=== PATIENT | male | born 1980 | race Caucasian/White ===

== ENCOUNTER 2020-07-27 19:00 | Inpatient (IN) | payer SELFPAY ==
[2020-07-27] MEDS ORDERED: Acetaminophen 325 MG Tab PO ONE (19:51)
[2020-07-27] MEDS ORDERED: hydrALAZINE 20 MG/ML SDV IVPUSH ONE (19:54)
--- NOTE | 2020-07-27 20:01 | CR ---
PROCEDURE INFORMATION: Exam: XR Chest Exam date and time: 07/27/2020 7:38 PM Age: 40 years old Clinical indication: Cough and shortness of breath; Additional info: Cough HTN TECHNIQUE: Imaging protocol: XR of the chest Views: 1 view. COMPARISON: No relevant prior studies available. FINDINGS: Lungs: Question mild diffuse bilateral interstitial disease. There is no evidence of focal pulmonary consolidation. Pleural spaces: No pleural effusion. No pneumothorax. Heart/Mediastinum: Prominent heart size is likely accentuated by portable technique. Bones/joints: No acute bony findings are identified. IMPRESSION: 1. Question mild diffuse bilateral interstitial disease. Interstitial pneumonia suspect.Consider viral etiologies, bacterial etiologies, and atypical etiologies. 2. Pulmonary edema/fibrosis are considered less likely
[2020-07-27 20:12] LABS: ANION GAP 14.7 mEq/L (7-13); CHLORIDE,CL 101 mmol/L (98-107); SODIUM,NA 138 mmol/L (136-145)
[2020-07-27 20:40] LABS: CORONAVIRUS COVID-19 NAA NEGATIVE (NEGATIVE)
[2020-07-27] MEDS ORDERED: Benzonatate 100 MG Cap PO ONE (20:50)
[2020-07-27] MEDS ORDERED: Azithromycin 250 MG Tab PO ONE (20:50)
--- NOTE | 2020-07-27 20:54 | EDM.PDOC ---
ED HPI GENERAL MEDICAL PROBLEM - General Chief Complaint: General Stated Complaint: AMBULANCE Time Seen by Provider: 07/27/20 19:05 Source of Information: Reports: Patient, EMS History Limitations: Reports: No Limitations - History of Present Illness INITIAL COMMENTS - FREE TEXT/NARRATIVE: ED via [facility] with c/o cough x 2 weeks, headache x 2 days, Has not taken anything today for headache. No known fever, Inhaler from [employer] used a couple times few days prior. Has not bee seen in clinic. Hx High blood pressure but doesn't take medication for it. Couch productive at times, sometimes green phlegm, mostly clear. No vomiting. Worked today. Reports does not wear mask while working in [employer] Headache Pain Score (Numeric/FACES): 2 - Related Data Allergies Allergy/AdvReac Type Severity Reaction Status Date / Time No Known Allergies Allergy Verified 07/28/20 00:03 Home Meds: Home Meds EPINEPHrine [Primatene Mist] 1 puff IH Q6H PRN 07/27/20 [History] Ibuprofen 800 mg PO BID PRN 07/28/20 [History] Naproxen Sodium 880 mg PO DAILY PRN 07/28/20 [History] Past Medical History Cardiovascular History: Reports: Hypertension - Infectious Disease History Infectious Disease History: Reports: Chicken Pox Social & Family History - Tobacco Use Tobacco Use Status *Q: Never Tobacco User Second Hand Smoke Exposure: Yes - Caffeine Use Caffeine Use: Reports: None - Recreational Drug Use Recreational Drug Use: No ED ROS GENERAL - Review of Systems Review Of Systems: Comprehensive ROS is negative, except as noted in HPI. ED EXAM, GENERAL - Physical Exam Exam: See Below Exam Limited By: No Limitations General Appearance: Alert, No Apparent Distress Eye Exam: Bilateral Eye: EOMI Ears: Normal External Exam, Hearing Grossly Normal Nose: Normal Inspection Throat/Mouth: Inflammation Head: Atraumatic, Normocephalic Neck: Normal Inspection Respiratory/Chest: Decreased Breath Sounds (bilateral bases ). No: Rhonchi, Wheezing Cardiovascular: Normal Peripheral Pulses, Regular Rate, Rhythm, Other (rare bronchial cough) GI/Abdominal: Normal Bowel Sounds, Soft, Non-Tender Back Exam: Normal Inspection Extremities: Normal Inspection Neurological: Alert, Oriented Psychiatric: Flat Affect Skin Exam: Warm, Dry, Other (cheeks flushed) #1 Interpretation EKG Date: 07/27/20 Time: 19:37 Rhythm: Other (Sinus tach) Rate (Beats/Min): 104 [place]: Normal P-Wave: Present QRS: Normal ST-T: Normal QT: Normal Comparison: NA - No Prior EKG Course - Vital Signs Last Recorded V/S: Last Vital Signs Temp 97.3 F 07/27/20 23:45 Pulse 103 H 07/27/20 23:45 Resp 20 07/27/20 23:45 BP 152/96 H 07/27/20 23:45 Pulse Ox 92 L 07/27/20 23:45 - Orders/Labs/Meds Orders: Active Orders 24 hr Category Date Time Status DRUG SCREEN URINE BIORAD [URCHEM] Stat Lab 07/27/20 19:22 Stop Req UA RFX JOANNE AND CULT IF INDIC [URIN] Stat Lab 07/27/20 19:22 Stop Req Medication Orders Acetaminophen (Acetaminophen 325 Mg Tab) 650 mg PO Q4H PRN PRN Reason: Pain (Mild 1-3)/fever Azithromycin (Azithromycin 250 Mg Tab) 250 mg PO DAILY [facility] Enoxaparin Sodium (Enoxaparin 40 Mg/0.4 Ml Syringe) 40 mg SUBCUT DAILY [facility] Ceftriaxone Sodium 1 gm/ (Sodium Chloride) 50 mls @ 100 mls/hr IV BEDTIME JORDAN Last Admin: 07/28/20 00:29 Dose: 100 mls/hr Documented by: MARCOS Labs: Laboratory Tests 07/27/20 07/27/20 07/27/20 Range/Units 19:23 19:39 19:39 WBC 17.0 H (5.0-10.0) 10^3/uL RBC 5.53 (4.6-6.2) 10^6/uL Hgb 16.9 (14.0-18.0) g/dL Hct 48.1 (40.0-54.0) % MCV 87.0 (80-100) fL MCH 30.6 (27.0-34.0) pg MCHC 35.1 H (33.0-35.0) g/dL Plt Count 243 (150-450) 10^3/uL Neut % (Auto) 93.2 H (42.2-75.2) % Lymph % (Auto) 3.5 L (20.5-50.1) % [place] % (Auto) 2.9 (2-8) % Eos % (Auto) 0.2 L (1.0-3.0) % Baso % (Auto) 0.2 (0.0-1.0) % Sodium 138 (136-145) mmol/L Potassium 4.7 (3.5-5.1) mmol/L Chloride 101 (98-107) mmol/L Carbon Dioxide 27 (21-32) mmol/L Anion Gap 14.7 H (7-13) mEq/L BUN 14 (7-18) mg/dL Creatinine 1.05 (0.70-1.30) mg/dL Est Cr Clr Drug Dosing 98.49 mL/min Estimated GFR (MDRD) > 60 BUN/Creatinine Ratio 13.3 (No establ ref range) Glucose 109 H (74-99) mg/dL Calcium 9.4 (8.5-10.1) mg/dL Total Bilirubin 0.6 (0.2-1.0) mg/dL AST 20 (15-37) U/L ALT 34 (16-63) U/L Alkaline Phosphatase 98 (46-116) U/L Total Protein 8.1 (6.4-8.2) g/dL Albumin 4.0 (3.4-5.0) g/dL Globulin 4.1 Albumin/Globulin Ratio 1.0 Influenza Type A RNA Negative (NEGATIVE) Influenza Type B RNA Negative (NEGATIVE) SARS-CoV-2 RNA (FARRUKH) Negative (NEGATIVE) Meds: Medications Generic Name Dose Route Start Last Admin Trade Name Freq PRN Reason Stop Dose Admin Acetaminophen 650 mg 07/27/20 23:50 Acetaminophen 325 Mg Tab PO Q4H PRN Pain (Mild 1-3)/fever Azithromycin 250 mg 07/28/20 09:00 Azithromycin 250 Mg Tab PO DAILY JORDAN Enoxaparin Sodium 40 mg 07/28/20 09:00 Enoxaparin 40 Mg/0.4 Ml Syringe SUBCUT DAILY JORDAN Ceftriaxone Sodium 1 gm/ 50 mls @ 100 mls/hr 07/28/20 00:15 07/28/20 00:29 Sodium Chloride IV 100 mls/hr BEDTIME JORDAN Administration Discontinued Medications Generic Name Dose Route Start Last Admin Trade Name Freq PRN Reason Stop Dose Admin Acetaminophen 650 mg 07/27/20 19:51 07/27/20 20:08 Acetaminophen 325 Mg Tab PO 07/27/20 19:52 650 mg NOW ONE Administration Azithromycin 500 mg 07/27/20 20:50 07/27/20 20:55 Azithromycin 250 Mg Tab PO 07/27/20 20:51 500 mg ONETIME ONE Administration Benzonatate 200 mg 07/27/20 20:50 07/27/20 20:55 Benzonatate 100 Mg Cap PO 07/27/20 20:51 200 mg ONETIME ONE Administration Ceftriaxone Sodium 1 gm 07/27/20 23:45 Ceftriaxone 1 Gm Vial IM BEDTIME JORDAN Hydralazine HCl 10 mg 07/27/20 19:54 07/27/20 20:09 Hydralazine 20 Mg/Ml Sdv IVPUSH 07/27/20 19:55 10 mg ONETIME ONE Administration Methylprednisolone Sodium Succinate 125 mg 07/27/20 21:09 07/27/20 21:16 Methylprednisolone Sodium Succinate 125 Mg/2 Ml Sdv IVPUSH 07/27/20 21:10 125 mg ONETIME ONE Administration Departure - Departure Time of Disposition: 20:51 Disposition: Admitted As Inpatient 68 Condition: Good Clinical Impression: Hypoxia, Interstitial pneumonia of both lungs Hypertension Qualifiers: Hypertension type: essential hypertension Qualified Code(s): I10 - Essential (primary) hypertension - Discharge Information *PRESCRIPTION DRUG MONITORING PROGRAM REVIEWED*: No *COPY OF PRESCRIPTION DRUG MONITORING REPORT IN PATIENT ROBINSON: No Sepsis Event Note (ED) - Evaluation Sepsis Screening Result: No Definite Risk - Focused Exam Vital Signs: Vital Signs Temp Pulse Resp BP Pulse Ox 07/27/20 19:04 99.4 F 111 H 18 186/108 H 96 - My Orders Last 24 Hours: My Active Orders 07/27/20 19:22 DRUG SCREEN URINE BIORAD [URCHEM] Stat UA RFX JOANNE AND CULT IF INDIC [URIN] Stat - Assessment/Plan Last 24 Hours: My Active Orders 07/27/20 19:22 DRUG SCREEN URINE BIORAD [URCHEM] Stat UA RFX JOANNE AND CULT IF INDIC [URIN] Stat
[2020-07-27] MEDS ORDERED: methylPREDNISolone Sodium Succinate 125 MG/2 ML SDV IVPUSH ONE (21:09)
--- NOTE | 2020-07-27 22:37 | CT ---
PROCEDURE INFORMATION: Exam: CT Chest Without Contrast; Diagnostic Exam date and time: 07/27/2020 10:08 PM Age: 40 years old Clinical indication: Cough and shortness of breath TECHNIQUE: Imaging protocol: Diagnostic computed tomography of the chest without contrast. Radiation optimization: All CT scans at this facility use at least one of these dose optimization techniques: automated exposure control; mA and/or kV adjustment per patient size (includes targeted exams where dose is matched to clinical indication); or iterative reconstruction. COMPARISON: CR Chest 1V Frontal 07/27/2020 7:38 PM FINDINGS: Lungs: Incidental note is made of an azygos lobe configuration in the right upper lung. There is fine diffuse bilateral interstitial disease. Pattern nonspecific. There is no evidence of focal pulmonary consolidation. Pleural spaces: No pleural effusion. No pneumothorax. Heart: The heart is not enlarged. Aorta: There is no thoracic aortic aneurysm. Lymph nodes: There is no evidence of lymphadenopathy. Adrenal glands: The adrenal glands are normal. Bones/joints: No acute bony findings are identified. Soft tissues: There is no soft tissue abnormality seen. IMPRESSION: Diffuse bilateral interstitial disease. Pneumonia suspect. Consider viral etiologies, bacterial etiologies, and atypical etiologies. Inflammatory, noninfectious processes are not ruled out. Fibrosis as well as early pulmonary edema are considered less likely.
[2020-07-27] MEDS ORDERED: cefTRIAXone 1 GM Vial IM SCH (23:45)
[2020-07-27] MEDS ORDERED: Acetaminophen 325 MG Tab PO PRN (23:50)
[2020-07-28] MEDS ORDERED: cefTRIAXone 1 GM Vial IV SCH (00:15)
--- NOTE | 2020-07-28 00:28 | PCM.HP ---
H&P History of Present Illness - General Date of Service: 07/28/20 Admit Problem/Dx: Admission Diagnosis/Problem Admission Diagnosis/Problem Respiratory failure with hypoxia - History of Present Illness Initial Comments - Free Text/Narative: 40M w/ pmh obesity, HT, HL, [id number] illness in 12/2019 (never tested), seasonal allergies, occasional meth use p/w cough. Appx two months ago the pt had a week long episode of dry cough, runny nose, body aches, headache, nausea and diarrhea. He did not present for evaluation or COVID19 testing and symptoms resolved completely after appx 1 week. Some time after that, on 06/15 the pt started a new job at [employer]. 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 His work is indoors and the room is filled w/ fumes. He works 10 hours per day, 4 days per week, with only 2x 15 min and 1x 30 min breaks. He does not wear any protective mask. He doesnt know the specific chemical substances he works with. Appx 1-2 weeks ago he again began having dry cough. This has progressed to near constant cough and now w/ mild phlegm. This is associated w/ headaches, malaise and body aches. He's afebrile but feels warm. He has also developed tiny patches of eczema on bilateral dorsal feet. Denies any animal exposures, moving apartments, recent sick contacts, travel. He does not smoke or vape. Occasional marijuana use. He uses meth rarely, once or twice per year - most recently 4 days ago. In the ED he was noted hypoxic to high 80s on room air. CXR and CT chest reveal diffuse interstitial disease. There is leukocytosis 17k. Otherwise VSS and afe brile. Headache Pain Score (Numeric/FACES): 2 - Related Data Allergies/Adverse Reactions: Allergies Allergy/AdvReac Type Severity Reaction Status Date / Time No Known Allergies Allergy Verified 07/28/20 00:03 Home Medications: Home Meds EPINEPHrine [Primatene Mist] 1 puff IH Q6H PRN 07/27/20 [History] Ibuprofen 800 mg PO BID PRN 07/28/20 [History] Naproxen Sodium 880 mg PO DAILY PRN 07/28/20 [History] Past Medical History Cardiovascular History: Reports: Hypertension - Infectious Disease History Infectious Disease History: Reports: Chicken Pox Social & Family History - Tobacco Use Tobacco Use Status *Q: Never Tobacco User Second Hand Smoke Exposure: Yes - Caffeine Use Caffeine Use: Reports: None - Recreational Drug Use Recreational Drug Use: No H&P Review of Systems - Review of Systems: Review Of Systems: See Below General: Reports: Malaise, Weakness. Denies: Fever, Chills, Diaphoresis HEENT: Reports: Headaches Pulmonary: Reports: Shortness of Breath, Cough, Sputum. Denies: Wheezing, Hemoptysis Cardiovascular: Denies: Chest Pain, Palpitations, Orthopnea, Edema Gastrointestinal: Denies: Abdominal Pain, Diarrhea, Nausea, Vomiting Genitourinary: Denies: Dysuria Musculoskeletal: Denies: Neck Pain Skin: Reports: Other (new eczema dorsal feet). Denies: Jaundice Psychiatric: Denies: Confusion, Depression, Anxiety Neurological: Denies: Dizziness Hematologic/Lymphatic: Denies: Easy Bleeding Immunologic: Reports: Seasonal Allergy. Denies: Food Allergy Exam - Exam Exam: See Below - Vital Signs Vital Signs: Last Vital Signs Temp 97.3 F 07/27/20 23:45 Pulse 103 H 07/27/20 23:45 Resp 20 07/27/20 23:45 BP 152/96 H 07/27/20 23:45 Pulse Ox 92 L 07/27/20 23:45 Weight: 351 lb 8 oz - Exam Quality Assessment: Supplemental Oxygen (2L) General: Alert, Oriented, Cooperative HEENT: Conjunctiva Clear Neck: Supple Lungs: Clear to Auscultation, Normal Respiratory Effort, Other (pleuritic cough elicited on deep inspiration) Cardiovascular: Regular Rate, Regular Rhythm GI/Abdominal Exam: Normal Bowel Sounds, Soft, Non-Tender, No Distention, Other (obese) Back Exam: Normal Inspection Extremities: No Pedal Edema Skin: Other (scattered tiny eczema spots on b/l dorsal feet) Neurological: Normal Speech Neuro Extensive - Mental Status: Alert, Oriented x3, Memory Intact Neuro Extensive - Motor, Sensory, Reflexes: No: Tremor Psychiatric: Alert, Normal Affect, Normal Mood - Patient Data Lab Results Last 24 hrs: Laboratory Results - last 24 hr 07/27/20 07/27/20 07/27/20 Range/Units 19:23 19:39 19:39 WBC 17.0 H (5.0-10.0) 10^3/uL RBC 5.53 (4.6-6.2) 10^6/uL Hgb 16.9 (14.0-18.0) g/dL Hct 48.1 (40.0-54.0) % MCV 87.0 (80-100) fL MCH 30.6 (27.0-34.0) pg MCHC 35.1 H (33.0-35.0) g/dL Plt Count 243 (150-450) 10^3/uL Neut % (Auto) 93.2 H (42.2-75.2) % Lymph % (Auto) 3.5 L (20.5-50.1) % [place] % (Auto) 2.9 (2-8) % Eos % (Auto) 0.2 L (1.0-3.0) % Baso % (Auto) 0.2 (0.0-1.0) % Sodium 138 (136-145) mmol/L Potassium 4.7 (3.5-5.1) mmol/L Chloride 101 (98-107) mmol/L Carbon Dioxide 27 (21-32) mmol/L Anion Gap 14.7 H (7-13) mEq/L BUN 14 (7-18) mg/dL Creatinine 1.05 (0.70-1.30) mg/dL Est Cr Clr Drug Dosing 98.49 mL/min Estimated GFR (MDRD) > 60 BUN/Creatinine Ratio 13.3 (No establ ref range) Glucose 109 H (74-99) mg/dL Calcium 9.4 (8.5-10.1) mg/dL Total Bilirubin 0.6 (0.2-1.0) mg/dL AST 20 (15-37) U/L ALT 34 (16-63) U/L Alkaline Phosphatase 98 (46-116) U/L Total Protein 8.1 (6.4-8.2) g/dL Albumin 4.0 (3.4-5.0) g/dL Globulin 4.1 Albumin/Globulin Ratio 1.0 Influenza Type A RNA Negative (NEGATIVE) Influenza Type B RNA Negative (NEGATIVE) SARS-CoV-2 RNA (FARRUKH) Negative (NEGATIVE) Result Diagrams: 07/27/20 19:39 07/27/20 19:39 Problem List Initiated/Reviewed/Updated: No Orders Last 24hrs: Active Orders 24 hr Category Date Time Status Admission Diagnosis [ADT] Stat ADT 07/27/20 22:42 Ordered Admission Status [Patient Status] [ADT] Routine ADT 07/27/20 22:42 Active Patient Status [ADT] Routine ADT 07/27/20 23:50 Active Oxygen Therapy [RC] PRN Care 07/27/20 23:50 Active Up ad Ceci [RC] ASDIRECTED Care 07/27/20 23:50 Active VTE/DVT Education [RC] PER UNIT ROUTINE Care 07/27/20 23:50 Active Vital Signs [RC] Q4H Care 07/27/20 23:50 Active Regular Diet [DIET] Diet 07/28/20 Breakfast Active Echo Comp wo Cont [US] Routine Exams 07/28/20 00:12 Ordered PRADEEP W/RFX TO ALL IF POSITIVE [REF] Routine Lab 07/29/20 06:00 Ordered B-TYPE NATRIURETIC PEPTIDE,BNP [CHEM] Routine Lab 07/28/20 06:00 Ordered C-REACTIVE PROTEIN [REF] Routine Lab 07/28/20 06:00 Ordered CBC WITH AUTO DIFF [HEME] AM Lab 07/28/20 05:11 Ordered CULTURE BLOOD [BC] Stat Lab 07/27/20 19:39 Received CULTURE BLOOD [BC] Stat Lab 07/27/20 23:31 Received DRUG SCREEN URINE BIORAD [URCHEM] Stat Lab 07/27/20 19:22 Stop Req GLYCOSYLATED HEMOGLOBIN,HGBA1C [CHEM] Routine Lab 07/28/20 06:00 Ordered HIV-1/2 AG/AB COMBO 4TH GEN [CHEM] Routine Lab 07/28/20 06:00 Ordered [id number] AB [REF] Routine Lab 07/28/20 06:00 Ordered SEDIMENTATION RATE MANUAL [HEME] Routine Lab 07/28/20 06:00 Ordered UA RFX JOANNE AND CULT IF INDIC [URIN] Stat Lab 07/27/20 19:22 Stop Req Acetaminophen [TylenoL] Med 07/27/20 23:50 Active 650 mg PO Q4H PRN Azithromycin [Zithromax] Med 07/28/20 09:00 Active 250 mg PO DAILY Enoxaparin [Lovenox] Med 07/28/20 09:00 Active 40 mg SUBCUT DAILY cefTRIAXone [Rocephin] Med 07/28/20 00:15 Ordered 1 gm IV BEDTIME Blood Culture x2 Reflex Set [OM.PC] Stat Oth 07/27/20 22:50 Ordered Resuscitation Status Routine Resus Stat 07/27/20 23:50 Ordered Medication Orders Acetaminophen (Acetaminophen 325 Mg Tab) 650 mg PO Q4H PRN PRN Reason: Pain (Mild 1-3)/fever Azithromycin (Azithromycin 250 Mg Tab) 250 mg PO DAILY JORDAN Ceftriaxone Sodium (Ceftriaxone 1 Gm Vial) 1 gm IV BEDTIME JORDAN Enoxaparin Sodium (Enoxaparin 40 Mg/0.4 Ml Syringe) 40 mg SUBCUT DAILY JORDAN Assessment/Plan Comment:: #acute hypoxic respiratory failure - CT reviewed and there are diffuse, very fine, interstitial infiltrates in virtually all lung parenchyma w/o specific distribution pattern - in my experience this does not look like COVID19 - he is neg for COVID19 and flu in ER - ddx is broad and includes false neg COVID19, atypical bacterial pneumonia, other viral pneumonia, PCP, hypersensitivity pneumonitis, acute eosinophilic pneumonia, or other cause interstitial lung disease - will send BNP, PRADEEP, HIV, CRP, ESR, check echo - will start abx for CAP - pt is s/p solumedrol dose in the ED - will hold off further steroids tonight - plan to d/w pulmonary at [facility] tomorrow - if fails to improve I suspect the pt will need transfer for bronchoscopy #HT - hold off meds tonight #obesity - check A1c PPX - LMWH Full code
[2020-07-28] MEDS: cefTRIAXone 1 GM in Sodium Chloride 0.9% 50 ML IV SCH ×2 (00:29→21:31)
[2020-07-28 06:57] LABS: HEMOGLOBIN A1C 5.4 % (<5.7)
[2020-07-28] MEDS: Azithromycin 250 MG Tab PO SCH (08:27)
[2020-07-28] MEDS: Enoxaparin 40 MG/0.4 ML Syringe SUBCUT SCH (08:27)
[2020-07-28] MEDS ORDERED: Sodium Chloride 0.9% 1,000 ML IV ONE (08:54)
--- NOTE | 2020-07-28 15:05 | PCM.HP ---
H&P History of Present Illness - General Date of Service: 07/28/20 Admit Problem/Dx: Admission Diagnosis/Problem Admission Diagnosis/Problem Respiratory failure with hypoxia Headache Pain Score (Numeric/FACES): 0 - Related Data Allergies/Adverse Reactions: Allergies Allergy/AdvReac Type Severity Reaction Status Date / Time No Known Allergies Allergy Verified 07/28/20 00:03 Home Medications: Home Meds Azithromycin [Zithromax] 250 mg PO DAILY #1 tablet 07/30/20 [Rx] predniSONE 20 mg PO WITHBREAKFAST #4 tablet 07/30/20 [Rx] Past Medical History Cardiovascular History: Reports: Hypertension - Infectious Disease History Infectious Disease History: Reports: Chicken Pox - Past Surgical History Cardiovascular Surgical History: Reports: None Social & Family History - Family History Family Medical History: No Pertinent Family History - Tobacco Use Tobacco Use Status *Q: Never Tobacco User Second Hand Smoke Exposure: Yes - Caffeine Use Caffeine Use: Reports: Coffee, Energy Drinks, Soda Other Caffeine Use: off and on - Alcohol Use Days Per Week of Alcohol Use: 2 Number of Drinks Per Day: 10 Total Drinks Per Week: 20 - Recreational Drug Use Recreational Drug Use: Yes Drug Use in Last 12 Months: Yes Recreational Drug Type: Reports: Marijuana/Hashish, Methamphetamine Recreational Drug Use Frequency: Binges Recreational Drug Last Use: 07/25/20 Exam - Vital Signs Vital Signs: Last Vital Signs Temp 98.5 F 07/28/20 12:00 Pulse 96 07/28/20 12:00 Resp 28 H 07/28/20 12:00 BP 145/74 H 07/28/20 12:00 Pulse Ox 92 L 07/28/20 12:00 Weight: 346 lb 6.4 oz - Patient Data Lab Results Last 24 hrs: Laboratory Results - last 24 hr 07/27/20 07/27/20 07/27/20 Range/Units 19:23 19:39 19:39 WBC 17.0 H (5.0-10.0) 10^3/uL RBC 5.53 (4.6-6.2) 10^6/uL Hgb 16.9 (14.0-18.0) g/dL Hct 48.1 (40.0-54.0) % MCV 87.0 (80-100) fL MCH 30.6 (27.0-34.0) pg MCHC 35.1 H (33.0-35.0) g/dL Plt Count 243 (150-450) 10^3/uL Neut % (Auto) 93.2 H (42.2-75.2) % Lymph % (Auto) 3.5 L (20.5-50.1) % [place] % (Auto) 2.9 (2-8) % Eos % (Auto) 0.2 L (1.0-3.0) % Baso % (Auto) 0.2 (0.0-1.0) % ESR (0-15) mm/hr Sodium 138 (136-145) mmol/L Potassium 4.7 (3.5-5.1) mmol/L Chloride 101 (98-107) mmol/L Carbon Dioxide 27 (21-32) mmol/L Anion Gap 14.7 H (7-13) mEq/L BUN 14 (7-18) mg/dL Creatinine 1.05 (0.70-1.30) mg/dL Est Cr Clr Drug Dosing 98.49 mL/min Estimated GFR (MDRD) > 60 BUN/Creatinine Ratio 13.3 (No establ ref range) Glucose 109 H (74-99) mg/dL Hemoglobin A1c (<5.7) % Lactic Acid (0.4-2.0) mmol/L Calcium 9.4 (8.5-10.1) mg/dL Total Bilirubin 0.6 (0.2-1.0) mg/dL AST 20 (15-37) U/L ALT 34 (16-63) U/L Alkaline Phosphatase 98 (46-116) U/L Lactate Dehydrogenase (85-227) U/L C-Reactive Protein (0.0-0.9) mg/dL B-Natriuretic Peptide (0-100) pg/ml Total Protein 8.1 (6.4-8.2) g/dL Albumin 4.0 (3.4-5.0) g/dL Globulin 4.1 Albumin/Globulin Ratio 1.0 HIV-1 Antibody (NONREACTIVE) HIV-2 Antibody (NONREACTIVE) HIV P24 Antigen (NONREACTIVE) Influenza Type A RNA Negative (NEGATIVE) Influenza Type B RNA Negative (NEGATIVE) SARS-CoV-2 RNA (FARRUKH) Negative (NEGATIVE) 07/28/20 07/28/20 07/28/20 Range/Units 06:35 06:35 06:35 WBC 10.3 H (5.0-10.0) 10^3/uL RBC 5.75 (4.6-6.2) 10^6/uL Hgb 17.5 (14.0-18.0) g/dL Hct 50.5 (40.0-54.0) % MCV 87.8 (80-100) fL MCH 30.4 (27.0-34.0) pg MCHC 34.7 (33.0-35.0) g/dL Plt Count 271 (150-450) 10^3/uL Neut % (Auto) 92.3 H (42.2-75.2) % Lymph % (Auto) 6.6 L (20.5-50.1) % [place] % (Auto) 0.9 L (2-8) % Eos % (Auto) 0.0 L (1.0-3.0) % Baso % (Auto) 0.2 (0.0-1.0) % ESR 6 (0-15) mm/hr Sodium (136-145) mmol/L Potassium (3.5-5.1) mmol/L Chloride (98-107) mmol/L Carbon Dioxide (21-32) mmol/L Anion Gap (7-13) mEq/L BUN (7-18) mg/dL Creatinine (0.70-1.30) mg/dL Est Cr Clr Drug Dosing mL/min Estimated GFR (MDRD) BUN/Creatinine Ratio (No establ ref range) Glucose (74-99) mg/dL Hemoglobin A1c (<5.7) % Lactic Acid (0.4-2.0) mmol/L Calcium (8.5-10.1) mg/dL Total Bilirubin (0.2-1.0) mg/dL AST (15-37) U/L ALT (16-63) U/L Alkaline Phosphatase (46-116) U/L Lactate Dehydrogenase (85-227) U/L C-Reactive Protein 9.4 H (0.0-0.9) mg/dL B-Natriuretic Peptide 9 (0-100) pg/ml Total Protein (6.4-8.2) g/dL Albumin (3.4-5.0) g/dL Globulin Albumin/Globulin Ratio HIV-1 Antibody Non-reactive (NONREACTIVE) HIV-2 Antibody Non-reactive (NONREACTIVE) HIV P24 Antigen Non-reactive (NONREACTIVE) Influenza Type A RNA (NEGATIVE) Influenza Type B RNA (NEGATIVE) SARS-CoV-2 RNA (FARRUKH) (NEGATIVE) 07/28/20 07/28/20 07/28/20 Range/Units 06:35 06:35 09:41 WBC (5.0-10.0) 10^3/uL RBC (4.6-6.2) 10^6/uL Hgb (14.0-18.0) g/dL Hct (40.0-54.0) % MCV (80-100) fL MCH (27.0-34.0) pg MCHC (33.0-35.0) g/dL Plt Count (150-450) 10^3/uL Neut % (Auto) (42.2-75.2) % Lymph % (Auto) (20.5-50.1) % [place] % (Auto) (2-8) % Eos % (Auto) (1.0-3.0) % Baso % (Auto) (0.0-1.0) % ESR (0-15) mm/hr Sodium (136-145) mmol/L Potassium (3.5-5.1) mmol/L Chloride (98-107) mmol/L Carbon Dioxide (21-32) mmol/L Anion Gap (7-13) mEq/L BUN (7-18) mg/dL Creatinine (0.70-1.30) mg/dL Est Cr Clr Drug Dosing mL/min Estimated GFR (MDRD) BUN/Creatinine Ratio (No establ ref range) Glucose (74-99) mg/dL Hemoglobin A1c 5.4 (<5.7) % Lactic Acid 2.6 H* (0.4-2.0) mmol/L Calcium (8.5-10.1) mg/dL Total Bilirubin (0.2-1.0) mg/dL AST (15-37) U/L ALT (16-63) U/L Alkaline Phosphatase (46-116) U/L Lactate Dehydrogenase 277 H (85-227) U/L C-Reactive Protein (0.0-0.9) mg/dL B-Natriuretic Peptide (0-100) pg/ml Total Protein (6.4-8.2) g/dL Albumin (3.4-5.0) g/dL Globulin Albumin/Globulin Ratio HIV-1 Antibody (NONREACTIVE) HIV-2 Antibody (NONREACTIVE) HIV P24 Antigen (NONREACTIVE) Influenza Type A RNA (NEGATIVE) Influenza Type B RNA (NEGATIVE) SARS-CoV-2 RNA (FARRUKH) (NEGATIVE) Result Diagrams: 07/29/20 05:57 07/29/20 05:57 Orders Last 24hrs: Active Orders 24 hr Category Date Time Status Admission Diagnosis [ADT] Stat ADT 07/27/20 22:42 Ordered Admission Status [Patient Status] [ADT] Routine ADT 07/27/20 22:42 Active Patient Status [ADT] Routine ADT 07/27/20 23:50 Active Oxygen Therapy [RC] .PRN Care 07/27/20 23:50 Active Up ad Ceci [RC] ASDIRECTED Care 07/27/20 23:50 Active VTE/DVT Education [RC] PER UNIT ROUTINE Care 07/27/20 23:50 Active Vital Signs [RC] 00,04,08,12,16,20 Care 07/27/20 23:50 Active Regular Diet [DIET] Diet 07/28/20 Breakfast Active Echo Comp wo Cont [US] Routine Exams 07/28/20 00:12 Ordered PRADEEP W/RFX TO ALL IF POSITIVE [REF] Routine Lab 07/29/20 06:00 Ordered CORONAVIRUS COVID-19 PCR PHL Routine Lab 07/28/20 09:48 Ordered CULTURE BLOOD [BC] Stat Lab 07/27/20 19:39 Received CULTURE BLOOD [BC] Stat Lab 07/27/20 23:31 Received DRUG SCREEN URINE BIORAD [URCHEM] Stat Lab 07/28/20 07:08 Stop Req [id number] AB [REF] Routine Lab 07/28/20 06:35 Received UA RFX JOANNE AND CULT IF INDIC [URIN] Stat Lab 07/28/20 07:08 Stop Req Acetaminophen [TylenoL] Med 07/27/20 23:50 Active 650 mg PO Q4H PRN Azithromycin [Zithromax] Med 07/28/20 09:00 Active 250 mg PO DAILY Enoxaparin [Lovenox] Med 07/28/20 09:00 Active 40 mg SUBCUT DAILY cefTRIAXone [Rocephin] 1 gm Med 07/28/20 00:15 Active Sodium Chloride 0.9% [Normal Saline] 50 ml IV BEDTIME Blood Culture x2 Reflex Set [OM.PC] Stat Oth 07/27/20 22:50 Ordered Resuscitation Status Routine Resus Stat 07/27/20 23:50 Ordered Medication Orders Acetaminophen (Acetaminophen 325 Mg Tab) 650 mg PO Q4H PRN PRN Reason: Pain (Mild 1-3)/fever Azithromycin (Azithromycin 250 Mg Tab) 250 mg PO DAILY [facility] Last Admin: 07/28/20 08:27 Dose: 250 mg Documented by: MARYANA Enoxaparin Sodium (Enoxaparin 40 Mg/0.4 Ml Syringe) 40 mg SUBCUT DAILY [facility] Last Admin: 07/28/20 08:27 Dose: 40 mg Documented by: MARYANA Ceftriaxone Sodium 1 gm/ (Sodium Chloride) 50 mls @ 100 mls/hr IV BEDTIME JORDAN Last Admin: 07/28/20 00:29 Dose: 100 mls/hr Documented by: MARCOS Assessment/Plan Comment:: #acute hypoxic respiratory failure - CT reviewed and there are diffuse, very fine, interstitial infiltrates in virtually all lung parenchyma w/o specific distribution pattern - in my experience this does not look like COVID19 - he is neg for COVID19 and flu in ER - ddx is broad and includes false neg COVID19, atypical bacterial pneumonia, other viral pneumonia, PCP, hypersensitivity pneumonitis, acute eosinophilic pneumonia, or other cause interstitial lung disease - will send BNP, PRADEEP, HIV, CRP, ESR, check echo - will start abx for CAP - pt is s/p solumedrol dose in the ED - will hold off further steroids tonight - plan to d/w pulmonary at [facility] tomorrow - if fails to improve I suspect the pt will need transfer for bronchoscopy #HT - hold off meds tonight #obesity - check A1c PPX - LMWH Full code
--- NOTE | 2020-07-28 15:17 | PCM.PN ---
- General Info Date of Service: 07/28/20 Admission Dx/Problem (Free Text): Feels somewhat improved. Did have a drenching cold sweat this am. Stable sats mid 90s on 3L at rest and while transferring out of bed. - Patient Data Vitals - Most Recent: Last Vital Signs Temp 98.5 F 07/28/20 12:00 Pulse 96 07/28/20 12:00 Resp 28 H 07/28/20 12:00 BP 145/74 H 07/28/20 12:00 Pulse Ox 92 L 07/28/20 12:00 Weight - Most Recent: 346 lb 6.4 oz I&O - Last 24 Hours: Intake & Output 07/28/20 07/28/20 07/28/20 06:59 14:59 22:59 Intake Total 500 1500 Output Total 600 Balance -100 1500 Lab Results Last 24 Hours: Laboratory Results - last 24 hr 07/27/20 07/27/20 07/27/20 Range/Units 19:23 19:39 19:39 WBC 17.0 H (5.0-10.0) 10^3/uL RBC 5.53 (4.6-6.2) 10^6/uL Hgb 16.9 (14.0-18.0) g/dL Hct 48.1 (40.0-54.0) % MCV 87.0 (80-100) fL MCH 30.6 (27.0-34.0) pg MCHC 35.1 H (33.0-35.0) g/dL Plt Count 243 (150-450) 10^3/uL Neut % (Auto) 93.2 H (42.2-75.2) % Lymph % (Auto) 3.5 L (20.5-50.1) % [place] % (Auto) 2.9 (2-8) % Eos % (Auto) 0.2 L (1.0-3.0) % Baso % (Auto) 0.2 (0.0-1.0) % ESR (0-15) mm/hr Sodium 138 (136-145) mmol/L Potassium 4.7 (3.5-5.1) mmol/L Chloride 101 (98-107) mmol/L Carbon Dioxide 27 (21-32) mmol/L Anion Gap 14.7 H (7-13) mEq/L BUN 14 (7-18) mg/dL Creatinine 1.05 (0.70-1.30) mg/dL Est Cr Clr Drug Dosing 98.49 mL/min Estimated GFR (MDRD) > 60 BUN/Creatinine Ratio 13.3 (No establ ref range) Glucose 109 H (74-99) mg/dL Hemoglobin A1c (<5.7) % Lactic Acid (0.4-2.0) mmol/L Calcium 9.4 (8.5-10.1) mg/dL Total Bilirubin 0.6 (0.2-1.0) mg/dL AST 20 (15-37) U/L ALT 34 (16-63) U/L Alkaline Phosphatase 98 (46-116) U/L Lactate Dehydrogenase (85-227) U/L C-Reactive Protein (0.0-0.9) mg/dL B-Natriuretic Peptide (0-100) pg/ml Total Protein 8.1 (6.4-8.2) g/dL Albumin 4.0 (3.4-5.0) g/dL Globulin 4.1 Albumin/Globulin Ratio 1.0 HIV-1 Antibody (NONREACTIVE) HIV-2 Antibody (NONREACTIVE) HIV P24 Antigen (NONREACTIVE) Influenza Type A RNA Negative (NEGATIVE) Influenza Type B RNA Negative (NEGATIVE) SARS-CoV-2 RNA (FARRUKH) Negative (NEGATIVE) 07/28/20 07/28/20 07/28/20 Range/Units 06:35 06:35 06:35 WBC 10.3 H (5.0-10.0) 10^3/uL RBC 5.75 (4.6-6.2) 10^6/uL Hgb 17.5 (14.0-18.0) g/dL Hct 50.5 (40.0-54.0) % MCV 87.8 (80-100) fL MCH 30.4 (27.0-34.0) pg MCHC 34.7 (33.0-35.0) g/dL Plt Count 271 (150-450) 10^3/uL Neut % (Auto) 92.3 H (42.2-75.2) % Lymph % (Auto) 6.6 L (20.5-50.1) % [place] % (Auto) 0.9 L (2-8) % Eos % (Auto) 0.0 L (1.0-3.0) % Baso % (Auto) 0.2 (0.0-1.0) % ESR 6 (0-15) mm/hr Sodium (136-145) mmol/L Potassium (3.5-5.1) mmol/L Chloride (98-107) mmol/L Carbon Dioxide (21-32) mmol/L Anion Gap (7-13) mEq/L BUN (7-18) mg/dL Creatinine (0.70-1.30) mg/dL Est Cr Clr Drug Dosing mL/min Estimated GFR (MDRD) BUN/Creatinine Ratio (No establ ref range) Glucose (74-99) mg/dL Hemoglobin A1c (<5.7) % Lactic Acid (0.4-2.0) mmol/L Calcium (8.5-10.1) mg/dL Total Bilirubin (0.2-1.0) mg/dL AST (15-37) U/L ALT (16-63) U/L Alkaline Phosphatase (46-116) U/L Lactate Dehydrogenase (85-227) U/L C-Reactive Protein 9.4 H (0.0-0.9) mg/dL B-Natriuretic Peptide 9 (0-100) pg/ml Total Protein (6.4-8.2) g/dL Albumin (3.4-5.0) g/dL Globulin Albumin/Globulin Ratio HIV-1 Antibody Non-reactive (NONREACTIVE) HIV-2 Antibody Non-reactive (NONREACTIVE) HIV P24 Antigen Non-reactive (NONREACTIVE) Influenza Type A RNA (NEGATIVE) Influenza Type B RNA (NEGATIVE) SARS-CoV-2 RNA (FARRUKH) (NEGATIVE) 07/28/20 07/28/20 07/28/20 Range/Units 06:35 06:35 09:41 WBC (5.0-10.0) 10^3/uL RBC (4.6-6.2) 10^6/uL Hgb (14.0-18.0) g/dL Hct (40.0-54.0) % MCV (80-100) fL MCH (27.0-34.0) pg MCHC (33.0-35.0) g/dL Plt Count (150-450) 10^3/uL Neut % (Auto) (42.2-75.2) % Lymph % (Auto) (20.5-50.1) % [place] % (Auto) (2-8) % Eos % (Auto) (1.0-3.0) % Baso % (Auto) (0.0-1.0) % ESR (0-15) mm/hr Sodium (136-145) mmol/L Potassium (3.5-5.1) mmol/L Chloride (98-107) mmol/L Carbon Dioxide (21-32) mmol/L Anion Gap (7-13) mEq/L BUN (7-18) mg/dL Creatinine (0.70-1.30) mg/dL Est Cr Clr Drug Dosing mL/min Estimated GFR (MDRD) BUN/Creatinine Ratio (No establ ref range) Glucose (74-99) mg/dL Hemoglobin A1c 5.4 (<5.7) % Lactic Acid 2.6 H* (0.4-2.0) mmol/L Calcium (8.5-10.1) mg/dL Total Bilirubin (0.2-1.0) mg/dL AST (15-37) U/L ALT (16-63) U/L Alkaline Phosphatase (46-116) U/L Lactate Dehydrogenase 277 H (85-227) U/L C-Reactive Protein (0.0-0.9) mg/dL B-Natriuretic Peptide (0-100) pg/ml Total Protein (6.4-8.2) g/dL Albumin (3.4-5.0) g/dL Globulin Albumin/Globulin Ratio HIV-1 Antibody (NONREACTIVE) HIV-2 Antibody (NONREACTIVE) HIV P24 Antigen (NONREACTIVE) Influenza Type A RNA (NEGATIVE) Influenza Type B RNA (NEGATIVE) SARS-CoV-2 RNA (FARRUKH) (NEGATIVE) Med Orders - Current: Current Medications Acetaminophen (Acetaminophen 325 Mg Tab) 650 mg PO Q4H PRN PRN Reason: Pain (Mild 1-3)/fever Azithromycin (Azithromycin 250 Mg Tab) 250 mg PO DAILY [facility] Last Admin: 07/28/20 08:27 Dose: 250 mg Documented by: Enoxaparin Sodium (Enoxaparin 40 Mg/0.4 Ml Syringe) 40 mg SUBCUT DAILY [facility] Last Admin: 07/28/20 08:27 Dose: 40 mg Documented by: Ceftriaxone Sodium 1 gm/ (Sodium Chloride) 50 mls @ 100 mls/hr IV BEDTIME JORDAN Last Admin: 07/28/20 00:29 Dose: 100 mls/hr Documented by: Discontinued Medications Acetaminophen (Acetaminophen 325 Mg Tab) 650 mg PO NOW ONE Stop: 07/27/20 19:52 Last Admin: 07/27/20 20:08 Dose: 650 mg Documented by: Azithromycin (Azithromycin 250 Mg Tab) 500 mg PO ONETIME ONE Stop: 07/27/20 20:51 Last Admin: 07/27/20 20:55 Dose: 500 mg Documented by: Benzonatate (Benzonatate 100 Mg Cap) 200 mg PO ONETIME ONE Stop: 07/27/20 20:51 Last Admin: 07/27/20 20:55 Dose: 200 mg Documented by: Ceftriaxone Sodium (Ceftriaxone 1 Gm Vial) 1 gm IM BEDTIME JORDAN Hydralazine HCl (Hydralazine 20 Mg/Ml Sdv) 10 mg IVPUSH ONETIME ONE Stop: 07/27/20 19:55 Last Admin: 07/27/20 20:09 Dose: 10 mg Documented by: Sodium Chloride (Normal Saline) 1,000 mls @ 999 mls/hr IV .BOLUS ONE Stop: 07/28/20 09:54 Last Infusion: 07/28/20 11:14 Dose: Infused Documented by: Methylprednisolone Sodium Succinate (Methylprednisolone Sodium Succinate 125 Mg/2 Ml Sdv) 125 mg IVPUSH ONETIME ONE Stop: 07/27/20 21:10 Last Admin: 07/27/20 21:16 Dose: 125 mg Documented by: - Exam Quality Assessment: Supplemental Oxygen (3L) General: Alert, Oriented, Cooperative HEENT: Pupils Equal, Pupils Reactive Neck: Supple Lungs: Clear to Auscultation, Normal Respiratory Effort Cardiovascular: Regular Rate, Regular Rhythm, No Murmurs GI/Abdominal Exam: Normal Bowel Sounds, Soft, Non-Tender, No Distention, Other (obese) Back Exam: Normal Inspection Extremities: No Pedal Edema Skin: Other (tiny eczematous spots on dorsal aspects of b/l feet) Neurological: No New Focal Deficit Psy/Mental Status: Alert, Normal Affect, Normal Mood - Patient Data Lab Results Last 24 hrs: Laboratory Results - last 24 hr 07/27/20 07/27/20 07/27/20 Range/Units 19:23 19:39 19:39 WBC 17.0 H (5.0-10.0) 10^3/uL RBC 5.53 (4.6-6.2) 10^6/uL Hgb 16.9 (14.0-18.0) g/dL Hct 48.1 (40.0-54.0) % MCV 87.0 (80-100) fL MCH 30.6 (27.0-34.0) pg MCHC 35.1 H (33.0-35.0) g/dL Plt Count 243 (150-450) 10^3/uL Neut % (Auto) 93.2 H (42.2-75.2) % Lymph % (Auto) 3.5 L (20.5-50.1) % [place] % (Auto) 2.9 (2-8) % Eos % (Auto) 0.2 L (1.0-3.0) % Baso % (Auto) 0.2 (0.0-1.0) % ESR (0-15) mm/hr Sodium 138 (136-145) mmol/L Potassium 4.7 (3.5-5.1) mmol/L Chloride 101 (98-107) mmol/L Carbon Dioxide 27 (21-32) mmol/L Anion Gap 14.7 H (7-13) mEq/L BUN 14 (7-18) mg/dL Creatinine 1.05 (0.70-1.30) mg/dL Est Cr Clr Drug Dosing 98.49 mL/min Estimated GFR (MDRD) > 60 BUN/Creatinine Ratio 13.3 (No establ ref range) Glucose 109 H (74-99) mg/dL Hemoglobin A1c (<5.7) % Lactic Acid (0.4-2.0) mmol/L Calcium 9.4 (8.5-10.1) mg/dL Total Bilirubin 0.6 (0.2-1.0) mg/dL AST 20 (15-37) U/L ALT 34 (16-63) U/L Alkaline Phosphatase 98 (46-116) U/L Lactate Dehydrogenase (85-227) U/L C-Reactive Protein (0.0-0.9) mg/dL B-Natriuretic Peptide (0-100) pg/ml Total Protein 8.1 (6.4-8.2) g/dL Albumin 4.0 (3.4-5.0) g/dL Globulin 4.1 Albumin/Globulin Ratio 1.0 HIV-1 Antibody (NONREACTIVE) HIV-2 Antibody (NONREACTIVE) HIV P24 Antigen (NONREACTIVE) Influenza Type A RNA Negative (NEGATIVE) Influenza Type B RNA Negative (NEGATIVE) SARS-CoV-2 RNA (FARRUKH) Negative (NEGATIVE) 07/28/20 07/28/20 07/28/20 Range/Units 06:35 06:35 06:35 WBC 10.3 H (5.0-10.0) 10^3/uL RBC 5.75 (4.6-6.2) 10^6/uL Hgb 17.5 (14.0-18.0) g/dL Hct 50.5 (40.0-54.0) % MCV 87.8 (80-100) fL MCH 30.4 (27.0-34.0) pg MCHC 34.7 (33.0-35.0) g/dL Plt Count 271 (150-450) 10^3/uL Neut % (Auto) 92.3 H (42.2-75.2) % Lymph % (Auto) 6.6 L (20.5-50.1) % [place] % (Auto) 0.9 L (2-8) % Eos % (Auto) 0.0 L (1.0-3.0) % Baso % (Auto) 0.2 (0.0-1.0) % ESR 6 (0-15) mm/hr Sodium (136-145) mmol/L Potassium (3.5-5.1) mmol/L Chloride (98-107) mmol/L Carbon Dioxide (21-32) mmol/L Anion Gap (7-13) mEq/L BUN (7-18) mg/dL Creatinine (0.70-1.30) mg/dL Est Cr Clr Drug Dosing mL/min Estimated GFR (MDRD) BUN/Creatinine Ratio (No establ ref range) Glucose (74-99) mg/dL Hemoglobin A1c (<5.7) % Lactic Acid (0.4-2.0) mmol/L Calcium (8.5-10.1) mg/dL Total Bilirubin (0.2-1.0) mg/dL AST (15-37) U/L ALT (16-63) U/L Alkaline Phosphatase (46-116) U/L Lactate Dehydrogenase (85-227) U/L C-Reactive Protein 9.4 H (0.0-0.9) mg/dL B-Natriuretic Peptide 9 (0-100) pg/ml Total Protein (6.4-8.2) g/dL Albumin (3.4-5.0) g/dL Globulin Albumin/Globulin Ratio HIV-1 Antibody Non-reactive (NONREACTIVE) HIV-2 Antibody Non-reactive (NONREACTIVE) HIV P24 Antigen Non-reactive (NONREACTIVE) Influenza Type A RNA (NEGATIVE) Influenza Type B RNA (NEGATIVE) SARS-CoV-2 RNA (FARRUKH) (NEGATIVE) 07/28/20 07/28/20 07/28/20 Range/Units 06:35 06:35 09:41 WBC (5.0-10.0) 10^3/uL RBC (4.6-6.2) 10^6/uL Hgb (14.0-18.0) g/dL Hct (40.0-54.0) % MCV (80-100) fL MCH (27.0-34.0) pg MCHC (33.0-35.0) g/dL Plt Count (150-450) 10^3/uL Neut % (Auto) (42.2-75.2) % Lymph % (Auto) (20.5-50.1) % [place] % (Auto) (2-8) % Eos % (Auto) (1.0-3.0) % Baso % (Auto) (0.0-1.0) % ESR (0-15) mm/hr Sodium (136-145) mmol/L Potassium (3.5-5.1) mmol/L Chloride (98-107) mmol/L Carbon Dioxide (21-32) mmol/L Anion Gap (7-13) mEq/L BUN (7-18) mg/dL Creatinine (0.70-1.30) mg/dL Est Cr Clr Drug Dosing mL/min Estimated GFR (MDRD) BUN/Creatinine Ratio (No establ ref range) Glucose (74-99) mg/dL Hemoglobin A1c 5.4 (<5.7) % Lactic Acid 2.6 H* (0.4-2.0) mmol/L Calcium (8.5-10.1) mg/dL Total Bilirubin (0.2-1.0) mg/dL AST (15-37) U/L ALT (16-63) U/L Alkaline Phosphatase (46-116) U/L Lactate Dehydrogenase 277 H (85-227) U/L C-Reactive Protein (0.0-0.9) mg/dL B-Natriuretic Peptide (0-100) pg/ml Total Protein (6.4-8.2) g/dL Albumin (3.4-5.0) g/dL Globulin Albumin/Globulin Ratio HIV-1 Antibody (NONREACTIVE) HIV-2 Antibody (NONREACTIVE) HIV P24 Antigen (NONREACTIVE) Influenza Type A RNA (NEGATIVE) Influenza Type B RNA (NEGATIVE) SARS-CoV-2 RNA (FARRUKH) (NEGATIVE) Result Diagrams: 07/28/20 06:35 07/27/20 19:39 Sepsis Event Note - Evaluation Sepsis Screening Result: Sepsis Risk - Focused Exam Vital Signs: Vital Signs Temp Pulse Resp BP BP Pulse Ox 07/28/20 12:00 98.5 F 96 28 H 145/74 H 92 L 07/28/20 08:00 96.5 F L 95 30 H 140/92 H 90 L 07/28/20 04:39 97.8 F 96 20 145/89 H 91 L - Problem List Review Problem List Initiated/Reviewed/Updated: No - My Orders Last 24 Hours: My Active Orders 07/27/20 19:39 CULTURE BLOOD [BC] Stat 07/27/20 22:50 Blood Culture x2 Reflex Set [OM.PC] Stat 07/27/20 23:31 CULTURE BLOOD [BC] Stat 07/27/20 23:50 Patient Status [ADT] Routine Oxygen Therapy [RC] .PRN Up ad Ceci [RC] ASDIRECTED VTE/DVT Education [RC] PER UNIT ROUTINE Vital Signs [RC] 00,04,08,12,16,20 Acetaminophen [TylenoL] 650 mg PO Q4H PRN Resuscitation Status Routine 07/28/20 00:12 Echo Comp wo Cont [US] Routine 07/28/20 00:15 cefTRIAXone [Rocephin] 1 gm Sodium Chloride 0.9% [Normal Saline] 50 ml IV BEDTIME 07/28/20 06:35 JANM-HMM4-YOL AB [REF] Routine 07/28/20 Breakfast Regular Diet [DIET] 07/28/20 09:00 Azithromycin [Zithromax] 250 mg PO DAILY Enoxaparin [Lovenox] 40 mg SUBCUT DAILY 07/28/20 09:48 CORONAVIRUS COVID-19 PCR PHL Routine 07/29/20 06:00 PRADEEP W/RFX TO ALL IF POSITIVE [REF] Routine - Plan Plan:: #acute hypoxic respiratory failure - CT reviewed and there are diffuse, very fine, interstitial infiltrates in virtually all lung parenchyma w/o specific distribution pattern - in my experience this does not look like COVID19 - he is neg for COVID19 and flu in ER - ddx is broad and includes false neg COVID19, atypical bacterial pneumonia, other viral pneumonia, PCP, hypersensitivity pneumonitis, acute eosinophilic pneumonia, or other cause interstitial lung disease - BNP low, HIV neg, CRP mild elevated - PRADEEP pending - repeat COVID19 swab sent to [facility] - check echo pending - c/w empiric abx for CAP - pt is s/p solumedrol dose in the ED - will hold off further steroids - I have pushed the CT images over to GF and paged pulmonary to discuss - if fails to improve I suspect the pt will need transfer for bronchoscopy #HT - hold off meds tonight #obesity - A1c 5.4 PPX - LMWH Full code
[2020-07-29 06:22] LABS: ANION GAP 14.8 mEq/L (7-13); CHLORIDE,CL 104 mmol/L (98-107); SODIUM,NA 139 mmol/L (136-145)
[2020-07-29] MEDS: Azithromycin 250 MG Tab PO SCH (09:31)
[2020-07-29] MEDS: Enoxaparin 40 MG/0.4 ML Syringe SUBCUT SCH (09:32)
[2020-07-29] MEDS ORDERED: Sodium Chloride 0.65% Nasal Spray 45 ML Bottle NAS PRN (10:54)
--- NOTE | 2020-07-29 11:06 | PCM.PN ---
- General Info Date of Service: 07/29/20 Admission Dx/Problem (Free Text): States he feels significantly improved from admit. Less cough. Afebrile. RA ambulatory sats 93% but occasionally still drops to high 80s at rest. - Patient Data Vitals - Most Recent: Last Vital Signs Temp 98.2 F 07/29/20 03:59 Pulse 73 07/29/20 03:59 Resp 20 07/29/20 03:59 BP 123/54 L 07/29/20 03:59 Pulse Ox 95 07/29/20 03:59 Weight - Most Recent: 346 lb 6.4 oz I&O - Last 24 Hours: Intake & Output 07/28/20 07/29/20 07/29/20 22:59 06:59 14:59 Intake Total 1530 0 Output Total 1500 0 Balance 30 0 Lab Results Last 24 Hours: Laboratory Results - last 24 hr 07/28/20 07/28/20 07/29/20 Range/Units 06:35 06:35 05:57 WBC 12.0 H (5.0-10.0) 10^3/uL RBC 4.99 (4.6-6.2) 10^6/uL Hgb 15.3 D (14.0-18.0) g/dL Hct 45.9 (40.0-54.0) % MCV 92.0 D (80-100) fL MCH 30.7 (27.0-34.0) pg MCHC 33.3 (33.0-35.0) g/dL Plt Count 234 (150-450) 10^3/uL Neut % (Auto) 67.1 (42.2-75.2) % Lymph % (Auto) 23.0 (20.5-50.1) % Kimball % (Auto) 8.7 H (2-8) % Eos % (Auto) 0.9 L (1.0-3.0) % Baso % (Auto) 0.3 (0.0-1.0) % Sodium (136-145) mmol/L Potassium (3.5-5.1) mmol/L Chloride (98-107) mmol/L Carbon Dioxide (21-32) mmol/L Anion Gap (7-13) mEq/L BUN (7-18) mg/dL Creatinine (0.70-1.30) mg/dL Est Cr Clr Drug Dosing mL/min Estimated GFR (MDRD) Glucose (74-99) mg/dL Calcium (8.5-10.1) mg/dL Lactate Dehydrogenase 277 H (85-227) U/L SARS-CoV-2 IgG Ab Reactive H (Non-Reactive) 07/29/20 Range/Units 05:57 WBC (5.0-10.0) 10^3/uL RBC (4.6-6.2) 10^6/uL Hgb (14.0-18.0) g/dL Hct (40.0-54.0) % MCV (80-100) fL MCH (27.0-34.0) pg MCHC (33.0-35.0) g/dL Plt Count (150-450) 10^3/uL Neut % (Auto) (42.2-75.2) % Lymph % (Auto) (20.5-50.1) % Kimball % (Auto) (2-8) % Eos % (Auto) (1.0-3.0) % Baso % (Auto) (0.0-1.0) % Sodium 139 (136-145) mmol/L Potassium 4.8 (3.5-5.1) mmol/L Chloride 104 (98-107) mmol/L Carbon Dioxide 25 (21-32) mmol/L Anion Gap 14.8 H (7-13) mEq/L BUN 19 H (7-18) mg/dL Creatinine 0.98 (0.70-1.30) mg/dL Est Cr Clr Drug Dosing 105.53 mL/min Estimated GFR (MDRD) > 60 Glucose 103 H (74-99) mg/dL Calcium 8.3 L (8.5-10.1) mg/dL Lactate Dehydrogenase (85-227) U/L SARS-CoV-2 IgG Ab (Non-Reactive) Rios Results Last 24 Hours: Microbiology 07/27/20 19:39 Aerobic Blood Culture - Preliminary Blood - Venous - Iv Start NO GROWTH AFTER 1 DAY Anaerobic Blood Culture - Preliminary NO GROWTH AFTER 1 DAY 07/27/20 23:31 Aerobic Blood Culture - Preliminary Blood - Arm, Left NO GROWTH AFTER 1 DAY Anaerobic Blood Culture - Preliminary NO GROWTH AFTER 1 DAY Med Orders - Current: Current Medications Acetaminophen (Acetaminophen 325 Mg Tab) 650 mg PO Q4H PRN PRN Reason: Pain (Mild 1-3)/fever Azithromycin (Azithromycin 250 Mg Tab) 250 mg PO DAILY [facility] Last Admin: 07/29/20 09:31 Dose: 250 mg Documented by: Enoxaparin Sodium (Enoxaparin 40 Mg/0.4 Ml Syringe) 40 mg SUBCUT DAILY [facility] Last Admin: 07/29/20 09:32 Dose: 40 mg Documented by: Ceftriaxone Sodium 1 gm/ (Sodium Chloride) 50 mls @ 100 mls/hr IV BEDTIME [facility] Last Infusion: 07/28/20 22:45 Dose: Infused Documented by: Sodium Chloride (Sodium Chloride 0.65% Nasal [place] 45 Ml Bottle) 5 ml GEOVANNA QID PRN PRN Reason: Congestion Discontinued Medications Acetaminophen (Acetaminophen 325 Mg Tab) 650 mg PO NOW ONE Stop: 07/27/20 19:52 Last Admin: 07/27/20 20:08 Dose: 650 mg Documented by: Azithromycin (Azithromycin 250 Mg Tab) 500 mg PO ONETIME ONE Stop: 07/27/20 20:51 Last Admin: 07/27/20 20:55 Dose: 500 mg Documented by: Benzonatate (Benzonatate 100 Mg Cap) 200 mg PO ONETIME ONE Stop: 07/27/20 20:51 Last Admin: 07/27/20 20:55 Dose: 200 mg Documented by: Ceftriaxone Sodium (Ceftriaxone 1 Gm Vial) 1 gm IM BEDTIME [facility] Hydralazine HCl (Hydralazine 20 Mg/Ml Sdv) 10 mg IVPUSH ONETIME ONE Stop: 07/27/20 19:55 Last Admin: 07/27/20 20:09 Dose: 10 mg Documented by: Sodium Chloride (Normal Saline) 1,000 mls @ 999 mls/hr IV .BOLUS ONE Stop: 07/28/20 09:54 Last Infusion: 07/28/20 11:14 Dose: Infused Documented by: Methylprednisolone Sodium Succinate (Methylprednisolone Sodium Succinate 125 Mg/2 Ml Sdv) 125 mg IVPUSH ONETIME ONE Stop: 07/27/20 21:10 Last Admin: 07/27/20 21:16 Dose: 125 mg Documented by: - Exam Quality Assessment: Supplemental Oxygen (1-2L) General: Alert, Oriented, Cooperative HEENT: Pupils Equal, Pupils Reactive Neck: Supple Lungs: Clear to Auscultation, Normal Respiratory Effort Cardiovascular: Regular Rate, Regular Rhythm, No Murmurs GI/Abdominal Exam: Normal Bowel Sounds, Soft, Non-Tender, Other (distended) Back Exam: Normal Inspection Extremities: No Pedal Edema Skin: Warm, Dry, Intact Neurological: No New Focal Deficit Psy/Mental Status: Alert, Normal Affect, Normal Mood - Patient Data Lab Results Last 24 hrs: Laboratory Results - last 24 hr 07/28/20 07/28/20 07/29/20 Range/Units 06:35 06:35 05:57 WBC 12.0 H (5.0-10.0) 10^3/uL RBC 4.99 (4.6-6.2) 10^6/uL Hgb 15.3 D (14.0-18.0) g/dL Hct 45.9 (40.0-54.0) % MCV 92.0 D (80-100) fL MCH 30.7 (27.0-34.0) pg MCHC 33.3 (33.0-35.0) g/dL Plt Count 234 (150-450) 10^3/uL Neut % (Auto) 67.1 (42.2-75.2) % Lymph % (Auto) 23.0 (20.5-50.1) % Kimball % (Auto) 8.7 H (2-8) % Eos % (Auto) 0.9 L (1.0-3.0) % Baso % (Auto) 0.3 (0.0-1.0) % Sodium (136-145) mmol/L Potassium (3.5-5.1) mmol/L Chloride (98-107) mmol/L Carbon Dioxide (21-32) mmol/L Anion Gap (7-13) mEq/L BUN (7-18) mg/dL Creatinine (0.70-1.30) mg/dL Est Cr Clr Drug Dosing mL/min Estimated GFR (MDRD) Glucose (74-99) mg/dL Calcium (8.5-10.1) mg/dL Lactate Dehydrogenase 277 H (85-227) U/L SARS-CoV-2 IgG Ab Reactive H (Non-Reactive) 07/29/20 Range/Units 05:57 WBC (5.0-10.0) 10^3/uL RBC (4.6-6.2) 10^6/uL Hgb (14.0-18.0) g/dL Hct (40.0-54.0) % MCV (80-100) fL MCH (27.0-34.0) pg MCHC (33.0-35.0) g/dL Plt Count (150-450) 10^3/uL Neut % (Auto) (42.2-75.2) % Lymph % (Auto) (20.5-50.1) % Kimball % (Auto) (2-8) % Eos % (Auto) (1.0-3.0) % Baso % (Auto) (0.0-1.0) % Sodium 139 (136-145) mmol/L Potassium 4.8 (3.5-5.1) mmol/L Chloride 104 (98-107) mmol/L Carbon Dioxide 25 (21-32) mmol/L Anion Gap 14.8 H (7-13) mEq/L BUN 19 H (7-18) mg/dL Creatinine 0.98 (0.70-1.30) mg/dL Est Cr Clr Drug Dosing 105.53 mL/min Estimated GFR (MDRD) > 60 Glucose 103 H (74-99) mg/dL Calcium 8.3 L (8.5-10.1) mg/dL Lactate Dehydrogenase (85-227) U/L SARS-CoV-2 IgG Ab (Non-Reactive) Result Diagrams: 07/29/20 05:57 07/29/20 05:57 Rios Results Last 24 hrs: Microbiology 07/27/20 19:39 Aerobic Blood Culture - Preliminary Blood - Venous - Iv Start NO GROWTH AFTER 1 DAY Anaerobic Blood Culture - Preliminary NO GROWTH AFTER 1 DAY 07/27/20 23:31 Aerobic Blood Culture - Preliminary Blood - Arm, Left NO GROWTH AFTER 1 DAY Anaerobic Blood Culture - Preliminary NO GROWTH AFTER 1 DAY Sepsis Event Note - Evaluation Sepsis Screening Result: No Definite Risk - Focused Exam Vital Signs: Vital Signs Temp Pulse Resp BP Pulse Ox 07/29/20 03:59 98.2 F 73 20 123/54 L 95 07/29/20 00:55 97.7 F 81 20 131/50 L 98 - Problem List Review Problem List Initiated/Reviewed/Updated: No - My Orders Last 24 Hours: My Active Orders 07/29/20 05:57 PRADEEP W/RFX TO ALL IF POSITIVE [REF] Routine PROCALCITONIN [REF] Routine 07/29/20 10:54 Sodium Chloride 0.65% [Parmer Nasal [place]] 5 ml GEOVANNA QID PRN - Plan Plan:: #acute hypoxic respiratory failure - due to suspected hypersensitivity pneumonitis - further ddx includes broad and includes atypical bacterial pneumonia, NON COVID19/flu viral pneumonia, acute eosinophilic pneumonia, or other cause interstitial lung disease - BNP low, HIV neg, CRP mild elevated, positive for COVID19 IGG (prior infection) - PRADEEP pending - echo read pending - c/w empiric abx for CAP - d/w Dr Sreekanth velásquez at [facility] and reviewed imaging >>> will start prednisone if procalcitonin is low - pt will likely need a bronchoscopy in or outpatient depending on clinical course in next 48h #HT - hold off meds tonight #obesity - A1c 5.4 PPX - LMWH Full code
[2020-07-29] MEDS ORDERED: PSEUDOEPHEDRINE 30 MG PO ONE (14:00)
[2020-07-29] MEDS ORDERED: PSEUDOEPHEDRINE 30 MG PO PRN (20:00)
[2020-07-29] MEDS: cefTRIAXone 1 GM in Sodium Chloride 0.9% 50 ML IV SCH (21:29)
[2020-07-30] MEDS ORDERED: predniSONE 20 MG Tab PO SCH (08:00)
[2020-07-30] MEDS: Enoxaparin 40 MG/0.4 ML Syringe SUBCUT SCH (08:05)
[2020-07-30] MEDS: Azithromycin 250 MG Tab PO SCH (08:05)
--- NOTE | 2020-07-30 18:44 | PCM.DCSUM1 ---
Discharge Summary - Hospital Course Free Text/Narrative:: 40M w/ pmh obesity, HT, HL, [id number] illness in 12/2019 (never tested), seasonal allergies, occasional meth use p/w cough. Appx two months ago the pt had a week long episode of dry cough, runny nose, body aches, headache, nausea and diarrhea. He did not present for evaluation or COVID19 testing and symptoms resolved completely after appx 1 week. Some time after that, on 06/15 the pt started a new job at [employer]. 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 His work is indoors and the room is filled w/ fumes. He works 10 hours per day, 4 days per week, with only 2x 15 min and 1x 30 min breaks. He does not wear any protective mask. He doesnt know the specific chemical substances he works with. Appx 1-2 weeks ago he again began having dry cough. This has progressed to near constant cough and now w/ mild phlegm. This is associated w/ headaches, malaise and body aches. He's afebrile but feels warm. He has also developed tiny patches of eczema on bilateral dorsal feet. Denies any animal exposures, moving apartments, recent sick contacts, travel. He does not smoke or vape. Occasional marijuana use. He uses meth rarely, once or twice per year - most recently 4 days ago. In the ED he was noted hypoxic to high 80s on room air. CXR and CT chest reveal diffuse interstitial disease. There is leukocytosis 17k. Otherwise VSS and afebrile. Pt was given empiric antibiotics to cover typical and atypical community bacterial pathogens although the CT appears did not suggest a bacterial infection. The CT and clinical course was reviewed w/ pulmonary at [facility] GF Dr Stack. The plan was to transfer for bronchoscopy if pt does not improved. The pt did improve however. Under recommendation from pulmonary the pt was discharged w/ short course of 20 mg prednisone for possible hypersensitivity pneumonitis. He was arranged for repeat CT chest in appx 1 mo time and a pulmonary follow up. This was arranged w/ to make if affordable since pt does not have health insurance. He was also instructed in detail how to file for insurance via [employer]. - Discharge Data Discharge Date: 07/30/20 Discharge Disposition: Home, Self-Care 01 Condition: Stable - Referral to Home Health Primary Care Physician: Awa Mccullough NP - Discharge Plan *PRESCRIPTION DRUG MONITORING PROGRAM REVIEWED*: No *COPY OF PRESCRIPTION DRUG MONITORING REPORT IN PATIENT ROBINSON: No Prescriptions/Med Rec: predniSONE 20 mg PO WITHBREAKFAST #4 tablet Azithromycin [Zithromax] 250 mg PO DAILY #1 tablet Home Medications: Home Meds Azithromycin [Zithromax] 250 mg PO DAILY #1 tablet 07/30/20 [Rx] predniSONE 20 mg PO WITHBREAKFAST #4 tablet 07/30/20 [Rx] Patient Handouts: Upper Respiratory Infection, Adult, [id number], Hypertension, Adult, [id number] Referrals: Awa Mccullough NP [Primary Care Provider] - - Discharge Summary/Plan Comment DC Time >30 min.: Yes (35) - Patient Data Vitals - Most Recent: Last Vital Signs Temp 97.4 F 07/30/20 11:55 Pulse 72 07/30/20 11:55 Resp 18 07/30/20 11:55 BP 126/80 07/30/20 11:55 Pulse Ox 94 L 07/30/20 11:55 Weight - Most Recent: 346 lb 6.4 oz I&O - Last 24 hours: Intake & Output 07/30/20 07/30/20 07/30/20 06:59 14:59 22:59 Intake Total 500 760 Output Total 2 Balance 498 760 Lab Results - Last 24 hrs: Laboratory Results - last 24 hr 07/29/20 Range/Units 05:57 Procalcitonin 0.07 ng/mL JOANNE Results - Last 24 hrs: Microbiology 07/27/20 19:39 Aerobic Blood Culture - Preliminary Blood - Venous - Iv Start NO GROWTH AFTER 2 DAYS Anaerobic Blood Culture - Preliminary NO GROWTH AFTER 2 DAYS 07/27/20 23:31 Aerobic Blood Culture - Preliminary Blood - Arm, Left NO GROWTH AFTER 2 DAYS Anaerobic Blood Culture - Preliminary NO GROWTH AFTER 2 DAYS Med Orders - Current: Current Medications Discontinued Medications Acetaminophen (Acetaminophen 325 Mg Tab) 650 mg PO NOW ONE Stop: 07/27/20 19:52 Last Admin: 07/27/20 20:08 Dose: 650 mg Documented by: Acetaminophen (Acetaminophen 325 Mg Tab) 650 mg PO Q4H PRN PRN Reason: Pain (Mild 1-3)/fever Azithromycin (Azithromycin 250 Mg Tab) 500 mg PO ONETIME ONE Stop: 07/27/20 20:51 Last Admin: 07/27/20 20:55 Dose: 500 mg Documented by: Azithromycin (Azithromycin 250 Mg Tab) 250 mg PO DAILY [facility] Last Admin: 07/30/20 08:05 Dose: 250 mg Documented by: Benzonatate (Benzonatate 100 Mg Cap) 200 mg PO ONETIME ONE Stop: 07/27/20 20:51 Last Admin: 07/27/20 20:55 Dose: 200 mg Documented by: Ceftriaxone Sodium (Ceftriaxone 1 Gm Vial) 1 gm IM BEDTIME [facility] Enoxaparin Sodium (Enoxaparin 40 Mg/0.4 Ml Syringe) 40 mg SUBCUT DAILY [facility] Last Admin: 07/30/20 08:05 Dose: 40 mg Documented by: Hydralazine HCl (Hydralazine 20 Mg/Ml Sdv) 10 mg IVPUSH ONETIME ONE Stop: 07/27/20 19:55 Last Admin: 07/27/20 20:09 Dose: 10 mg Documented by: Ceftriaxone Sodium 1 gm/ (Sodium Chloride) 50 mls @ 100 mls/hr IV BEDTIME [facility] Last Infusion: 07/29/20 22:00 Dose: Infused Documented by: Sodium Chloride (Normal Saline) 1,000 mls @ 999 mls/hr IV .BOLUS ONE Stop: 07/28/20 09:54 Last Infusion: 07/28/20 11:14 Dose: Infused Documented by: Methylprednisolone Sodium Succinate (Methylprednisolone Sodium Succinate 125 M g/2 Ml Sdv) 125 mg IVPUSH ONETIME ONE Stop: 07/27/20 21:10 Last Admin: 07/27/20 21:16 Dose: 125 mg Documented by: Pseudoephedrine ( (Sudafed) 30 Mg Tab) 0 each PO ONETIME ONE Stop: 07/29/20 14:01 Last Admin: 07/29/20 13:56 Dose: 1 each Documented by: Pseudoephedrine ( (Sudafed) 30 Mg Tab) 0 each PO Q6H PRN PRN Reason: Congestion Last Admin: 07/30/20 10:53 Dose: 1 each Documented by: Prednisone (Prednisone 20 Mg Tab) 20 mg PO WITHBREAKFAST [facility] Last Admin: 07/30/20 08:05 Dose: 20 mg Documented by: Sodium Chloride (Sodium Chloride 0.65% Nasal [place] 45 Ml Bottle) 5 ml GEOVANNA QID PRN PRN Reason: Congestion Last Admin: 07/29/20 11:20 Dose: 1 spray Documented by: - Exam Quality Assessment: Denies: Supplemental Oxygen General: Reports: Alert, Oriented, Cooperative HEENT: Reports: Pupils Equal Neck: Reports: Supple Lungs: Reports: Clear to Auscultation, Normal Respiratory Effort Cardiovascular: Reports: Regular Rate, Regular Rhythm GI/Abdominal Exam: Normal Bowel Sounds, Soft, Non-Tender, No Distention Back Exam: Reports: Normal Inspection Extremities: No Pedal Edema Skin: Reports: Warm, Dry Neurological: Reports: No New Focal Deficit Psy/Mental Status: Reports: Alert, Normal Affect, Normal Mood
== END 2020-07-30 13:55 | disposition home or self-care (01) | DRG 196 ==
LOC: DL.ED 19:00 → DL.MS 22:42
PROVIDERS: ADMIT Internal Medicine; ATTEND Internal Medicine
DX: J67.9 Hypersensitivity pneumonitis due to unspecified organic dust (principal); J96.01 Acute respiratory failure with hypoxia; Z68.42 Body mass index [BMI] 45.0-49.9, adult; I10 Essential (primary) hypertension; E66.9 Obesity, unspecified; Z20.822 Contact with and (suspected) exposure to COVID-19; L30.9 Dermatitis, unspecified
CPT/HCPCS: 0240U; 36415; 71045; 71250; 80048; 80053; 83036; 83605; 83615; 83880; 84145; 85025; 85651; 86038; 86140; 86769; 87040; 87389; 93005; 93010; 93306; 96374; 96375; 99222; 99232; 99239; 99284; 99285-25; A9270-GY; J0360; J0696; J1650; J2930; J7030; J7512; U0002

== ENCOUNTER 2022-07-23 09:11 | Emergency (ER) | payer OTHER ==
[2022-07-23 10:03] LABS: ANION GAP 14.4 mEq/L (7-13)
== END 2022-07-23 11:12 | disposition home or self-care (01) ==
LOC: DL.ED 09:11
DX: S92.324A Nondisplaced fracture of second metatarsal bone, right foot, initial encounter for closed fracture (principal); I10 Essential (primary) hypertension; W22.09XA Striking against other stationary object, initial encounter
CPT/HCPCS: 36415; 73630-RT; 80053; 83605; 84550; 85025; 87040; 99283

== ENCOUNTER 2023-02-23 05:50 | Emergency (ER) | payer OTHER ==
[~2023-02-23 05:50] MED LIST: Bacitracin Oint 1 GM U/D Packet TOP ONE; Diphtheria,Pertussis(Acell),Tetanus Vaccine 0.5 ML Syringe IM ONE; Lidocaine 2% with EPINEPHrine 1:200,000 20 ML SDV INJECT ONE
== END 2023-02-23 06:03 | disposition home or self-care (01) ==
LOC: DL.ED 05:50
DX: S01.81XA Laceration without foreign body of other part of head, initial encounter (principal); I10 Essential (primary) hypertension; F17.210 Nicotine dependence, cigarettes, uncomplicated; Z23 Encounter for immunization; Z86.16 Personal history of COVID-19; Y04.0XXA Assault by unarmed brawl or fight, initial encounter
CPT/HCPCS: 12014; 90471; 90715; 99283; A9270; J3490

== ENCOUNTER 2023-11-26 03:01 | Emergency (ER) | payer OTHER ==
[2023-11-26 04:21] LABS: BASOPHILS PERCENT AUTO 0.4 % (0.0-1.0); EOSINOPHILS PERCENT AUTO 0.1 % (1.0-3.0); HEMATOCRIT 49.3 % (40.0-54.0); HEMOGLOBIN 16.8 g/dL (14.0-18.0); LYMPHOCYTES PERCENT AUTO 9.5 % (20.5-50.1); MEAN CORPUSCULAR HEMOGLOBIN 29.9 pg (27.0-34.0); MEAN CORPUSCULAR HGB CONC 34.1 g/dL (33.0-35.0); MEAN CORPUSCULAR VOLUME 87.9 fL (80-100); MONOCYTES PERCENT AUTO 4.6 % (2-8); NEUTROPHILS PERCENT AUTO 85.4 % (42.2-75.2); PLATELET COUNT,PLT 322 10^3/uL (150-450); RED BLOOD CELL COUNT 5.61 10^6/uL (4.6-6.2); WHITE BLOOD CELL COUNT,WBC 14.9 10^3/uL (5.0-10.0)
[2023-11-26 04:38] LABS: A/G RATIO 1.2; ALANINE AMINOTRANSFERASE,ALT 39 U/L (16-63); ALBUMIN 4.7 g/dL (3.4-5.0); ALKALINE PHOSPHATASE 90 U/L (46-116); ANION GAP 18.6 mEq/L (7-13); ASPARTATE AMNIOTRANSFERASE,AST 32 U/L (15-37); BILIRUBIN TOTAL 0.9 mg/dL (0.2-1.0); BLOOD UREA NITROGEN,BUN 15 mg/dL (7-18); CALCIUM 9.5 mg/dL (8.5-10.1); CARBON DIOXIDE,CO2 26 mmol/L (21-32); CHLORIDE,CL 100 mmol/L (98-107); CREATININE 1.67 mg/dL (0.70-1.30); GLUCOSE RANDOM 209 mg/dL (70-99); POTASSIUM,K 3.6 mmol/L (3.5-5.1); PROTEIN TOTAL,TP 8.5 g/dL (6.4-8.2); SODIUM,NA 141 mmol/L (136-145)
[2023-11-26 04:43] LABS: ESTIMATED GFR 52 mL/min (>=60); ETHANOL BLOOD MEDICAL < 3 mg/dL (0)
[2023-11-26] MEDS: Lactated Ringers 1,000 ML IV ONE (05:45)
[2023-11-26] MEDS: Sodium Chloride 0.9% 10 ML Syringe FLUSH PRN (05:45)
[2023-11-26] MEDS: Ondansetron 4 MG/2 ML SDV IVPUSH ONE (06:24)
[2023-11-26] MEDS: Sodium Chloride 0.9% 1,000 ML IV ONE (07:57)
[2023-11-26] MEDS: Famotidine 20 MG/2 ML SDV IVPUSH ONE (08:04)
[2023-11-26 12:46] LABS: APPEARANCE,URINE CLEAR (CLEAR); BILIRUBIN,URINE NEGATIVE (NEGATIVE); COLOR,URINE YELLOW (YELLOW); GLUCOSE,URINE NEGATIVE (NEGATIVE); KETONES,URINE >=160 (NEGATIVE); LEUKOCYTE ESTERASE,URINE NEGATIVE (NEGATIVE); NITRITE,URINE NEGATIVE (NEGATIVE); OCCULT BLOOD,URINE TRACE-INTACT (NEGATIVE); PROTEIN,URINE 100 (NEGATIVE)
[2023-11-26 13:00] LABS: AMPHETAMINES,URINE NEGATIVE (NEGATIVE); BARBITURATES,URINE NEGATIVE (NEGATIVE); BENZODIAZEPINE,URINE NEGATIVE (NEGATIVE); MDMA (ECSTASY), URINE NEGATIVE (NEGATIVE); METHADONE,URINE NEGATIVE (NEGATIVE); METHAMPHETAMINES,URINE NEGATIVE (NEGATIVE); OPIATES,URINE NEGATIVE (NEGATIVE); OXYCODONE,URINE NEGATIVE (NEGATIVE); PHENCYCLIDINE,URINE NEGATIVE (NEGATIVE); TCA,URINE NEGATIVE (NEGATIVE)
[2023-11-26 13:04] LABS: EPITHELIAL CELLS,URINE RARE /HPF (NOT SEEN); MUCUS,URINE FEW /LPF (NOT SEEN)
[2023-11-26 13:05] LABS: AMORPHOUS SEDIMENT,URINE FEW /HPF (NOT SEEN); FINE GRANULAR CASTS,URINE RARE /LPF (NOT SEEN); HYALINE CASTS,URINE RARE; RBC,URINE 0-5 /HPF (0-5); WBC,URINE 0-5 /HPF (0-5/HPF)
[2023-11-26 13:06] LABS: BACTERIA,URINE RARE /HPF (0-FEW/HPF)
== END 2023-11-26 13:45 | disposition home or self-care (01) ==
LOC: DL.ED 03:01
DX: F12.10 Cannabis abuse, uncomplicated (principal); N17.9 Acute kidney failure, unspecified; E86.0 Dehydration; I10 Essential (primary) hypertension; E66.9 Obesity, unspecified; Z86.16 Personal history of COVID-19; Z79.899 Other long term (current) drug therapy
CPT/HCPCS: 36415; 70450; 80053; 80305; 80307; 81001; 85025; 96361; 96374; 96375; 99285; J2405; J3490; J7030; J7120

== ENCOUNTER 2023-11-27 04:25 | Emergency (ER) | payer OTHER | END 2023-11-27 06:15 | LOC: DL.ED 04:25 | DX: F16.10 Hallucinogen abuse, uncomplicated (principal); I10 Essential (primary) hypertension; F17.200 Nicotine dependence, unspecified, uncomplicated; E66.9 Obesity, unspecified; Z86.16 Personal history of COVID-19; Z79.899 Other long term (current) drug therapy | CPT/HCPCS: 99285 ==